=== PATIENT | female | born 1950 | race Two or more races ===

== ENCOUNTER 2025-03-01 19:07 | Emergency (ER) | payer MEDICAID ==
[~2025-03-01] VITALS: Ht 160 cm; Wt 70.3 kg
[2025-03-01] MEDS ORDERED: DICYCLOMINE HCL (10MG/ML) 2 ML AMPULE IM ONE (19:45)
--- NOTE | 2025-03-01 20:22 | ED.PDOC ---
History of Present Illness HPI Comments 74 y/o Wallisian speaking F presents with c/c of nonradiating, diffused abdominal pain, with associated diarrhea, intermittent fever, and generalized bodyaches, for over the past 3x days. Patient states the symptoms came on and have been intermittent. Patient denies any recent travel or new food sources. Vital signs were stable on arrival. Chief Complaint: Diarrhea Time Seen by MD: 19:30 Reviewed Notes: Nurses Notes, Medications, Allergies Allergies: Coded Allergies: NO KNOWN ALLERGIES (Unverified , 03/01/25) Information Source: Patient Mode of Arrival: Ambulatory Severity: Moderate Timing: Days Duration: Since onset Prehospital treatment: None Past Medical History PAST MEDICAL HISTORY: Denies Surgical History: Denies all surgeries PRODUCT SAFETY HEAD History: No Pertinent PRODUCT SAFETY HEAD History Social History Smoker: Non-Smoker Alcohol: Denies ETOH Use Drugs: Denies Drug Use Lives In: Home Constitutional: reports: fever; denies: chills, diaphoresis, fatigue, malaise, sweats, weakness, others EENTM: denies: blurred vision, double vision, ear bleeding, ear discharge, ear drainage, ear pain, ear ringing, eye pain, eye redness, hearing loss, mouth pain, mouth swelling, nasal discharge, nose bleeding, nose congestion, nose pain, photophobia, tearing, throat pain, throat swelling, voice changes, others Respiratory: denies: cough, hemoptysis, orthopnea, SOB at rest, shortness of breath, SOB with excertion, stridor, wheezing, others Cardiovascular: denies: chest pain, dizzy spells, diaphoresis, Dyspnea on exertion, edema, irregular heart beat, left arm pain, lightheadedness, palpitations, PND, syncope, others Gastrointestinal: reports: abdominal pain, nausea, vomiting; denies: abdomen distended, blood streaked bowels, constipated, diarrhea, dysphagia, difficulty swallowing, hematemesis, melena, poor appetite, poor fluid intake, rectal bleeding, rectal pain, others Genitourinary: denies: abnormal vagina bleeding, burning, dyspareunia, dysuria, flank pain, frequency, hematuria, incontinence, pain, , vagina discharge, urgency, others Neurological: denies: dizziness, fainting, headache, left sided numbness, left sided weakness, numbness, paresthesia, pre-existing deficit, right sided numbness, right sided weakness, seizure, speech problems, tingling, tremors, weakness, others Musculoskeletal: denies: back pain, gout, joint pain, joint swelling, muscle pain, muscle stiffness, neck pain, others Integumetry: denies: bruises, change in color, change in hair/nails, dryness, laceration, lesions, lumps, rash, wounds, others Allergic/Immunocompromised: denies: Difficulty Healing, Frequent Infections, Hives, Itching, others Hematologic/Lymphatic: denies: anemia, blood clots, easy bleeding, easy bruising, swollen glands, others Endocrine: denies: excessive hunger, excessive sweating, excessive thirst, excessive urination, flushing, intolerance to cold, intolerance to heat, unexplained weight gain, unexplained weight loss, others Psychiatric: denies: anxiety, bipolar disorder, depression, hopeless, panic disorder, schizophrenia, sleepless, suicidal, others All Other Systems: Reviewed and Negative (Comprehensive review of systems are negative unless stated in HPI) Physical Exam General Appearance: No Apparent Distress, Normal HEENT: Normal ENT Inspection, Pharynx Normal, TMs Normal Neck: Full Range of Motion, Non-Tender, Normal, Normal Inspection Respiratory: Chest Non-Tender, Lungs Clear, No Accessory Muscle Use, No Respiratory Distress, Normal Breath Sounds Cardiovascular: No Edema, No JVD, No Murmur, No Gallop, Normal Peripheral Pulses, Regular Rate/Rhythm Breast Exam: Deferred Gastrointestinal: Other (Diffuse nonspecific abdominal pain throughout all quadrants. Abdomen was reasonably soft. No pulsatile masses.) Genitalia: Deferred Pelvic: Deferred Rectal: Deferred Extremities: No calf tenderness, Normal capillary refill, No pedal edema Neurologic: Alert Cerebellar Function: NOT DONE Reflexes: NOT DONE Skin: Dry, Normal Color, Warm Lymphatic: No Adenopathy Was a procedure done? Was a procedure done?: No Differential Dx Considerations may include: Urinary tract infection, viral gastroenteritis, food poisoning X-Ray, Labs, Meds, VS Vital Signs Date Time Temp Pulse Resp B/P (MAP) Pulse Ox O2 Delivery O2 Flow Rate FiO2 03/01/25 19:12 98.3 96 16 130/86 95 98.3 Lab Test 03/01/25 19:30 Range/Units Urine Color Light-yellow Yellow Urine Clarity Clear Clear Urine pH 5.5 5.0-9.0 Urine Specific [place] 1.011 1.001-1.035 Urine Protein Negative Negative Urine Ketones Negative Negative Urine Blood Negative Negative /uL Urine Nitrite Negative Negative Urine Bilirubin Negative Negative Urine Urobilinogen Normal Negative mg/dL Urine Leukocyte Esterase Negative Negative /uL Urine RBC <1 0 - 4 /hpf Urine Microscopic WBC < 1 0-5 /HPF Urine Squamous Epithelial Cells Few <5 /hpf Urine Bacteria None seen None Seen /hpf Urine Glucose Normal Normal mg/dL X-Ray, Labs, Meds, VS Comment All studies performed the ED were evaluated by me personally. Urinalysis was unremarkable for any urinary tract infection. Patient appears to be suffering from a viral gastroenteritis. Advised patient utilize medication as needed for symptomatic relief. Advised good hydration and healthy nutrition throughout. Time of 1ST Reevaluation: 22:53 Reevaluation 1ST: Improved Consultation: PCP Patient Education/Counseling: Diagnosis, Treatment, Need For Follow Up Family Education/Counseling: Diagnosis, Treatment, No Family Present SEPSIS Sepsis Screen Date sepsis recognized/suspect: Mar 01, 2025 Time Sepsis recognized/suspect: 1911 Recent Procedure: No On Antibiotic Therapy: No Respiratory Rate >20: No Heart Rate >90: No Temp<36 C (96.8 F) or >38.3 C: No SBP <90 or MAP <65 mmHG: No New Acute Mental Status Change: No Is the patient on CPAP, BIPAP,: No Vital Signs Date Time Temp Pulse Resp B/P (MAP) Pulse Ox O2 Delivery O2 Flow Rate FiO2 03/01/25 19:12 98.3 96 16 130/86 95 98.3 Departure 1 Departure Time of Disposition: 22:54 Impression: Primary Impression: Viral gastroenteritis Disposition: HOME / SELF CARE / HOMELESS Condition: Stable Additional Instructions: Advised patient to utilize medication as needed for symptomatic relief as well as good hydration and healthy nutrition throughout illness event. e-Prescriptions Acetaminophen (Acetaminophen) 500 Mg Tab 500 MG PO Q4HP PRN, #30 TAB Prov: JYOTI SHABAZZ PAC 03/01/25 Ondansetron Odt 4MG Tab (ZOFRAN PO) 4 Mg Tb 4 MG PO Q6HP PRN, #15 TAB ODT TAB-DISSOLVE IN MOUTH, THEN SWALLOW Prov: JYOTI SHABAZZ PAC 03/01/25 Dicyclomine Hcl (BENTYL CAPSULE) 10 Mg Cp 1 CAP PO Q6HPRN, #20 CAP 0 Refills Prov: JYOTI SHABAZZ PAC 03/01/25 Discharged With: Self, Friend Critical Care Note Critical Care Time?: No Stability Stability form required: No Heart Score Heart Score: Heart Score Response (Comments) Value History N/A 0 EKG N/A 0 Age N/A 0 Risk Factors N/A 0 Troponin N/A 0 Total 0 I personally scribed for JYOTI SHABAZZ PAC ([email or web address]) on 03/01/25 at 20:22. Electronically submitted by Clarence Augustin ([email or web address]). JYOTI SHABAZZ PAC Mar 01, 2025 20:22
[2025-03-01 20:58] LABS: Urine Protein, UAD Negative (Negative)
[2025-03-01] MEDS ORDERED: ZOFR4T PO (22:55)
[2025-03-01] MEDS ORDERED: ACET500T58 PO (22:55)
[2025-03-01] MEDS ORDERED: DICY10CA PO (22:55)
[2025-03-01 23:12] VITALS: BP 133/66; TEMP 98.1
[2025-03-01 23:13] VITALS: PULSE 78; RESP 18; O2SAT 96
== END 2025-03-01 23:15 | disposition home or self-care (01) ==
LOC: ER 19:07
DX: A08.4 Viral intestinal infection, unspecified (principal); Z79.899 Other long term (current) drug therapy
CPT/HCPCS: 81001

== ENCOUNTER 2025-03-13 11:33 | Inpatient (IN) | payer MEDICAID ==
[~2025-03-13] VITALS: Ht 149.9 cm; Wt 55.8 kg
[~2025-03-13 11:33] MED LIST: ACET500T58 PO; DICY10CA PO; ZOFR4T PO
--- NOTE | 2025-03-13 13:28 | ED.PDOC ---
GI ASSESSMENT HPI Comments 74-year-old female presents here with abdominal pain x1 week. She states she was here 2 weeks ago with similar chief complaint. At that time she was diagnosed with viral gastroenteritis discharged home with Bentyl. She states she is doing okay for 1 week and then for last 1 week she has had significant lower abdominal pain. She states it can be anytime whether she is eating sleeping any particular time. She states her diarrhea has mostly resolved but she continues to have significant discomfort. Denies any fever chills nausea vomiting.. Chief Complaint: Abdominal Pain Time Seen by MD: 13:25 Reviewed Notes: Nurses Notes, Medications, Allergies Allergies: Coded Allergies: NO KNOWN ALLERGIES (Unverified , 03/01/25) Home Meds Active Scripts Acetaminophen (Acetaminophen) 500 Mg Tab, 500 MG PO Q4HP PRN, #30 TAB Prov:JYOTI SHABAZZ PAC 03/01/25 Ondansetron Odt 4MG Tab (ZOFRAN PO) 4 Mg Tb, 4 MG PO Q6HP PRN, #15 TAB ODT TAB-DISSOLVE IN MOUTH, THEN SWALLOW Prov:JYOTI SHABAZZ PAC 03/01/25 Dicyclomine Hcl (BENTYL CAPSULE) 10 Mg Cp, 1 CAP PO Q6HPRN, #20 CAP 0 Refills Prov:JYOTI SHABAZZ PAC 03/01/25 Information Source: Patient Mode of Arrival: Ambulatory Timing: Days Duration: Since onset, Days Prehospital treatment: None Quality: Aching Vomitus: None Stool: Loose Severity: Moderate Recent: None Recent Hx of: None Pain Location: Suprapubic Associated sign and symptoms: Diarrhea, Abdominal Pain Past Medical History PAST MEDICAL HISTORY: Denies Surgical History: Denies all surgeries PRINTER MACHINE History: No Pertinent PRINTER MACHINE History Family History Family History: Reviewed,noncontributory to illness, Unknown Social History Smoker: Non-Smoker Alcohol: Denies ETOH Use Drugs: Denies Drug Use Lives In: Home Constitutional: denies: chills, diaphoresis, fatigue, fever, malaise, sweats, weakness, others EENTM: denies: blurred vision, double vision, ear bleeding, ear discharge, ear drainage, ear pain, ear ringing, eye pain, eye redness, hearing loss, mouth pain, mouth swelling, nasal discharge, nose bleeding, nose congestion, nose pain , photophobia, tearing, throat pain, throat swelling, voice changes, others Respiratory: denies: cough, hemoptysis, orthopnea, SOB at rest, shortness of breath, SOB with excertion, stridor, wheezing, others Cardiovascular: denies: chest pain, dizzy spells, diaphoresis, Dyspnea on exertion, edema, irregular heart beat, left arm pain, lightheadedness, palpitations, PND, syncope, others Gastrointestinal: reports: abdominal pain, diarrhea; denies: abdomen distended, blood streaked bowels, constipated, dysphagia, difficulty swallowing, hematemesis, melena, nausea, poor appetite, poor fluid intake, rectal bleeding, rectal pain, vomiting, others Genitourinary: denies: abnormal vagina bleeding, burning, dyspareunia, dysuria, flank pain, frequency, hematuria, incontinence, pain, , vagina discharge, urgency, others Neurological: denies: dizziness, fainting, headache, left sided numbness, left sided weakness, numbness, paresthesia, pre-existing deficit, right sided numbness, right sided weakness, seizure, speech problems, tingling, tremors, weakness, others Musculoskeletal: denies: back pain, gout, joint pain, joint swelling, muscle pain, muscle stiffness, neck pain, others Integumetry: denies: bruises, change in color, change in hair/nails, dryness, laceration, lesions, lumps, rash, wounds, others Allergic/Immunocompromised: denies: Difficulty Healing, Frequent Infections, Hives, Itching, others Hematologic/Lymphatic: denies: anemia, blood clots, easy bleeding, easy bruising, swollen glands, others Endocrine: denies: excessive hunger, excessive sweating, excessive thirst, excessive urination, flushing, intolerance to cold, intolerance to heat, unexplained weight gain, unexplained weight loss, others Psychiatric: denies: anxiety, bipolar disorder, depression, hopeless, panic disorder, schizophrenia, sleepless, suicidal, others All Other Systems: Reviewed and Negative Physical Exam General Appearance: No Apparent Distress, Normal HEENT: Normal ENT Inspection, Pharynx Normal, TMs Normal Neck: Full Range of Motion, Non-Tender, Normal, Normal Inspection Respiratory: Chest Non-Tender, Lungs Clear, No Accessory Muscle Use, No Respiratory Distress, Normal Breath Sounds Cardiovascular: No Edema, No JVD, No Murmur, No Gallop, Normal Peripheral Pulses, Regular Rate/Rhythm Breast Exam: Deferred Gastrointestinal: No Organomegaly, Non Tender, No Pulsatile Mass, Normal Bowel Sounds, Soft, Tenderness (Diffuse lower abdominal tenderness to palpation worse in the left lower quadrant) Genitalia: Deferred Pelvic: Deferred Rectal: Deferred Extremities: No calf tenderness, Normal capillary refill, Normal inspection, Normal range of motion, Non-tender, No pedal edema Musculoskeletal : Apperance: Normal Neurologic: Alert, filenet developer II-XII nml as Tested, No Motor Deficits, Normal Affect, Normal Mood, No Sensory Deficits Cerebellar Function: Normal Reflexes: Normal Skin: Dry, Normal Color, Warm Lymphatic: No Adenopathy Was a procedure done? Was a procedure done?: No GI differential Dx Differential Diagnosis: Gastritis/PUD, Ischemic Bowel, Mass Other Differential Diagnosis Diverticulitis, small-bowel obstruction, C diff X-Ray, Labs, Meds, VS Vital Signs Date Time Temp Pulse Resp B/P (MAP) Pulse Ox O2 Delivery O2 Flow Rate FiO2 03/13/25 11:44 98.8 104 16 146/87 96 98.8 Lab Test 03/13/25 13:52 Range/Units White Blood Count 7.0 4.4-10.8 10^3/uL Red Blood Count 4.13 4.0-5.20 10^6/uL Hemoglobin 13.1 12.2-16.2 g/dL Hematocrit 36.9 36.0-46.0 % Mean Corpuscular Volume 89.4 80.0-100.0 fL Mean Corpuscular Hemoglobin 31.6 28.0-32.0 pg Mean Corpuscular Hemoglobin Concent 35.4 32.0-36.0 g/dL Red Cell Distribution Width 12.8 11.8-14.3 % Platelet Count 293 140-450 10^3/uL Mean Platelet Volume 7.0 6.9-10.8 fL Neutrophils (%) (Auto) 61.3 37.0-80.0 % Lymphocytes (%) (Auto) 27.3 10.0-50.0 % Monocytes (%) (Auto) 7.9 0.0-12.0 % Eosinophils (%) (Auto) 2.9 0.0-7.0 % Basophils (%) (Auto) 0.6 0.0-2.0 % Neutrophils # (Auto) 4.3 1.6-8.6 10 ^3/uL Lymphocytes # (Auto) 1.9 0.4-5.4 10 ^3/uL Monocytes # (Auto) 0.6 0-1.3 10 ^3/uL Eosinophils # (Auto) 0.2 0-0.8 10 ^3/uL Basophils # (Auto) 0 0-0.2 10 ^3/uL Nucleated Red Blood Cells 0.1 % Sodium Level 139 136-145 mmol/L Potassium Level 3.7 3.5-5.1 mmol/L Chloride Level 103 98-107 mmol/L Carbon Dioxide Level 27 20-31 mmol/L Anion Gap 9 5-15 Blood Urea Nitrogen 7 L 9-23 mg/dL Creatinine 0.70 0.550-1.02 mg/dL Glomerular Filtration Rate Calc 91 >90 mL/min BUN/Creatinine Ratio 10.0 10.0-20.0 Serum Glucose 138 H 74-106 mg/dL Calcium Level 9.4 8.7-10.4 mg/dL Total Bilirubin 0.4 0.2-1.0 mg/dL Aspartate Amino Transferase (AST) 17 13-40 U/L Alanine Aminotransferase (ALT) 15 7-40 U/L Alkaline Phosphatase 63 46-116 U/L Total Protein 7.3 5.7-8.2 g/dL Albumin 4.4 3.2-4.8 g/dL Lipase 48 12-53 U/L [place] [id number] Ph: [phone] DIAGNOSTIC IMAGING Diagnostic Imaging Report : [id number] Signed PATIENT: CASPER GARCIA ACCT: [id number] UNIT: [id number] : 1950 LOC: ER ROOM / BED: / AGE / SEX: 74 / F ADM STATUS: REG ER SERVICE 1303 ORDERING PHYSICIAN: GM BARAKAT MD PROCEDURE(s): ABPL - CT AB PEL WO CON-NO ORAL OR IV REASON: Abdominal pain ORDER NUMBER(s): [id number], ACCESSION NUMBER(s): [id number] CLINICAL HISTORY: Abdominal pain TECHNIQUE: CT of the abdomen and pelvis was performed without IV contrast. This exam was performed according to our departmental dose optimization program. Up-to-date CT equipment and radiation dose reduction techniques are utilized as appropriate. CTDI 7.2 DLP 321 COMPARISON: None FINDINGS: Abdomen/Pelvis: The spleen, pancreas, adrenal glands, liver, kidneys, and bladder are grossly u nremarkable. The gallbladder and uterus are absent. The abdominal aorta is normal in course and caliber. There are minimal aortic atherosclerotic calcifications. There is no free intraperitoneal air or fluid. There is no enlarged abdominal pelvic lymph node. There is no bowel wall thickening or dilatation. The appendix is normal. There are small fat containing ventral hernias. There is mild left colon diverticulosis. Other: The imaged lower thorax demonstrates mild atelectatic changes at both lung bases. No acute osseous abnormality is evident. Impression: No acute abnormality. Hysterectomy. Cholecystectomy. Mild left colon diverticulosis. ATED BY: VANESA TRAVIS MD DICTATED DATE/TIME: 03/13/257 SIGNED BY: VANESA TRAVIS MD SIGNED DATE/TIME: 03/13/257 CC: 74-year-old female presents here with lower abdominal pain. She was here 2 weeks ago with similar complaint diagnosed with viral enteritis. She states she was doing okay for 1 week and for last 1 week she has had significant lower abdominal pain. Diarrhea has mostly improved but continues to have some. On my examination she is exquisitely tender to the lower abdomen mostly to the left. CT abdomen pelvis with noncontrast is unremarkable. However at this time given she is so tender considered possible C diff also. However patient unable to give a stool sample. She states she is unable to be seen by her PCP until April. At this time blood work is unremarkable with a normal CBC BMP. I did offer admission which she has agreed to. I also have ordered a CT abdomen pelvis with oral and IV contrast. Hospitalist team has been contacted for admission. Time of 1ST Reevaluation: 13:55 Reevaluation 1ST: Unchanged Patient Education/Counseling: Diagnosis, Treatment, Prognosis Family Education/Counseling: No Family Present SEPSIS Sepsis Screen Date sepsis recognized/suspect: Mar 13, 2025 Time Sepsis recognized/suspect: 1147 Recent Procedure: No On Antibiotic Therapy: No Respiratory Rate >20: No Heart Rate >90: Yes Temp<36 C (96.8 F) or >38.3 C: No SBP <90 or MAP <65 mmHG: No New Acute Mental Status Change: No Is the patient on CPAP, BIPAP,: No Physician Orders Urinalysis (03/13/25 13:03) Ct Ab Pel Wo Con-No Oral Or Iv (03/13/25 13:03) Clostridium Difficile Toxin (03/13/25 15:22) Stool Bacterial Culture (03/13/25 15:22) Ct Abd Pelvis W Con-Oral & Iv (03/13/25 15:22) Vital Signs Date Time Temp Pulse Resp B/P (MAP) Pulse Ox O2 Delivery O2 Flow Rate FiO2 03/13/25 11:44 98.8 104 16 146/87 96 98.8 Laboratory Tests Test 03/13/25 13:52 White Blood Count 7.0 10^3/uL (4.4-10.8) Departure 1 Departure Time of Disposition: 15:28 Impression: Primary Impression: Abdominal pain Qualified Codes: R10.32 - Left lower quadrant pain Disposition: 09 ADMITTED INPATIENT Condition: Fair Critical Care Note Critical Care Time?: No Stability Stability form required: No Heart Score Heart Score: Heart Score Response (Comments) Value History N/A 0 EKG N/A 0 Age N/A 0 Risk Factors N/A 0 Troponin N/A 0 Total 0 I personally scribed for GM BARAKAT MD ([email or web address]) on 03/13/25 at 13:28. Electronically submitted by Guzman Shane ([email or web address]). GM BARAKAT MD Mar 13, 2025 13:28
--- NOTE | 2025-03-13 13:50 | DVH ---
CLINICAL HISTORY: Abdominal pain TECHNIQUE: CT of the abdomen and pelvis was performed without IV contrast. This exam was performed ac cording to our departmental dose optimization program. Up-to-date CT equipment and radiation dose red uction techniques are utilized as appropriate. CTDI 7.2 DLP 321 COMPARISON: None FINDINGS: Abdomen/Pelvis: The spleen, pancreas, adrenal glands, liver, kidneys, and bladder are grossly unremarkable. The gallbladder and uterus are absent. The abdominal aorta is normal in course and caliber. There are minimal aortic atherosclerotic calcifi cations. There is no free intraperitoneal air or fluid. There is no enlarged abdominal pelvic lymph node. There is no bowel wall thickening or dilatation. The appendix is normal. There are small fat containi ng ventral hernias. There is mild left colon diverticulosis. Other: The imaged lower thorax demonstrates mild atelectatic changes at both lung bases. No acute osseous abnormality is evident. Impression: No acute abnormality. Hysterectomy. Cholecystectomy. Mild left colon diverticulosis.
[2025-03-13 14:39] LABS: Hematocrit 36.9 % (36.0-46.0); Hemoglobin 13.1 g/dL (12.2-16.2); Mean Corpuscular Hemoglobin 31.6 pg (28.0-32.0); Mean Corpuscular Volume 89.4 fL (80.0-100.0); Nucleated Red Blood Cells % 0.1 %
[2025-03-13 14:53] LABS: Alanine Aminotransferase 15 U/L (7-40); Albumin 4.4 g/dL (3.2-4.8); Alkaline Phosphatase 63 U/L (46-116); Anion Gap 9 (5-15); BUN/Creatinine Ratio 10.0 (10.0-20.0); Bilirubin, Total 0.4 mg/dL (0.2-1.0); Calcium 9.4 mg/dL (8.7-10.4); Carbon Dioxide 27 mmol/L (20-31); Chloride 103 mmol/L (98-107); Lipase 48 U/L (12-53); Potassium 3.7 mmol/L (3.5-5.1); Sodium 139 mmol/L (136-145); Total Protein 7.3 g/dL (5.7-8.2)
[2025-03-13 14:57] LABS: Blood Urea Nitrogen 7 mg/dL (9-23); Glucose 138 mg/dL (74-106)
[2025-03-13] MEDS: OMNIPAQUE 12mg/ml 500ml ORAL SOLUTION PO ONE (16:14)
[2025-03-13] MEDS: IOHEXOL 300 MG/ML 100ML BOTTLE IJ ONE (18:02)
--- NOTE | 2025-03-13 18:19 | DVH ---
EXAM: CT CT ABD PELVIS W CON-ORAL IV HISTORY: abd pain TECHNIQUE: Volumetric multidetector CT images of the abdomen and pelvis were obtained after the admin istration of intravenous contrast. All CT scans at this facility use dose modulation, iterative recon struction, and/or weight based dosing when appropriate to reduce radiation dose to as low as reasonab ly achievable. COMPARISON: CT CT AB PEL WO CON-NO ORAL OR IV on DOS: 03/13/25 FINDINGS: [LOWER CHEST]: The partially visualized lung bases are clear without a pleural effusion. [LIVER]: Normal hepatic size without suspicious focal lesion. [GALLBLADDER AND BILIARY TREE]: Surgically absent. [SPLEEN]: Unremarkable. [PANCREAS]: Unremarkable. [ADRENAL GLANDS]: Unremarkable [KIDNEYS]: No hydronephrosis. No nephroureterolithiasis. No suspicious focal lesion. [BLADDER]: Unremarkable for the degree distention. [REPRODUCTIVE ORGANS]: Hysterectomy. [BOWEL/MESENTERY]: Stomach is normal. No CT evidence of bowel obstruction. minimal sigmoid diverticul osis. No significant stool burden. Trace possible sliding hiatal hernia [ASCITES]: Absent [LYMPHADENOPATHY]: No pathologically enlarged lymph nodes by CT size criteria [VASCULATURE]: No aneurysmal dilatation. [ABDOMINAL WALL]: Unremarkable. [MUSCULOSKELETAL]: No acute fracture or aggressive focal osseous lesion. Multifocal degenerative garza ge of the visualized spine. IMPRESSION: 1. No CT evidence of an acute abdominal/pelvic process. 2. Trace possible sliding hiatal hernia.
[2025-03-13 18:47] VITALS: PULSE 79; RESP 12; O2SAT 98
[2025-03-13 19:48] VITALS: PULSE 74; RESP 18; O2SAT 97
[2025-03-13] MEDS ORDERED: HYDROcodone-ACET 5/325MG TAB PO PRN (20:45)
[2025-03-13] MEDS ORDERED: ONDANSETRON HCL 4 MG/2 ML VIAL IV PRN (20:45)
[2025-03-13] MEDS: SODIUM CHLORIDE 0.9% 1,000 ML IV SCH (21:03)
--- NOTE | 2025-03-13 21:41 | DVHHP2 ---
History of Present Illness Reason for Visit: Abdominal pain History of Present Illness The patient is a 74-year-old female who denies past medical history presented to [facility] ED with complaint of abdominal pain for the past 1 week. Patient reports she has been experiencing acute abdominal pain associated with diarrhea. Patient states she was seen here 2 weeks ago with similar symptoms and was diagnosed with viral gastroenteritis discharged home with Jennyyl. Patient was seen and evaluated in the ED, laboratory data shows WBC 7.0, platelets 293, sodium 139, potassium 3.7, BUN 7, creatinine 0.70, glucose 138, calcium 9.4, lipase 48, blood pressure 120/63, heart rate 74, temperature 98.1 F, O2 saturation 96% on room air. Abdomen/pelvis CT shows no evidence of acute abdominal/pelvic process. Please see medication orders section in the computer. On my assessment, patient denied chest pain, no headache, dizziness, diaphoresis, shortness of breaths, no abdominal pain at this moment, diarrhea, nausea, vomiting, no fever, no chills. Patient was admitted for further evaluation and medical management. Past Medical History Denies past medical history Past Surgical History Denies all surgeries Family History Reviewed, noncontributory to the management of this case. Past Social History The patient lives at home, denies smoking, alcohol or illicit drugs abuse. Review of Systems Constitutional: No: Fever, Chills, Sweats, Weakness, Malaise, Other Eyes: No: Pain, Vision change, Conjunctivae inflammation, Eyelid inflammation, Other, Redness ENT: No: Ear pain, Ear discharge, Nose pain, Nose discharge, Nose congestion, Mouth pain, Mouth swelling, Throat pain, Throat swelling, Other Respiratory: No: Cough, Dry, Shortness of breath, SOB with excertion, Wheezing, Hemoptysis, Pleuritic Pain, Sputum, Wheezing, Other Cardiovascular: No: Chest Pain, Palpitations, Orthopnea, Paroxysmal Noc. Dyspnea, Edema, Lt Headedness, Other Gastrointestinal: Abdominal Pain, Diarrhea; No: Nausea, Vomiting, Constipation, Melena, Hematochezia, Other Genitourinary: No Dysuria, No Frequency, No Incontinence, No Hematuria, No Retention, No Other Musculoskeletal: No: other, neck pain, shoulder pain, arm pain, back pain, hand pain, leg pain, foot pain Skin: No: Rash, Lesions, Jaundice, Bruising, Other Neurological: No: Weakness, Numbness, Incoordination, Change in speech, Confusion, Seizures, Other Allergies: Coded Allergies: NO KNOWN ALLERGIES (Unverified , 03/01/25) Medications Current Medications Medications Dose Ordered Sig/Lina Route Start Time Stop Time Status Last Admin Dose Admin Sodium Chloride 1,000 ml @ 60 mls/hr [id number] IV 03/13/25 20:45 03/13/25 21:03 60 MLS/HR Acetaminophen/ Hydrocodone Bitart 1 tab Q4HP PRN PO 03/13/25 20:45 Ondansetron HCl 4 mg Q4HP PRN IV 03/13/25 20:45 Acetaminophen 650 mg Q6HP PRN PO 03/13/25 20:45 Exam Vital Signs Vital Signs Date Time Temp Pulse Resp B/P (MAP) Pulse Ox O2 Delivery O2 Flow Rate FiO2 03/13/25 19:48 74 18 97 Room Air* 0 21 03/13/25 19:48 98.1 120/63 (82) 98.1 General Appearance: Alert, Oriented X3, Cooperative, No acute distress HEENT: Atraumatic, PERRLA, EOMI, Mucous membr. moist/pink Respiratory: Clear to auscultation, Normal air movement Cardiovascular: Regular rate, Normal S1, Normal S2, No murmurs Abdominal: Normal bowel sounds, Soft, No hepatospenomegaly, No masses, Other (Reports tenderness) Extremities: No clubbing, No cyanosis, No edema, Normal pulses Skin: No rashes, No breakdown, No significant lesion Neuro: Normal gait, Normal speech, Strength at 5/5 X4 ext, Normal tone, Sensation intact, Cranial nerves 3-12 NL, Reflexes 2+ Psych/Mental Status: Mental status NL, Mood NL Labs/Xrays Labs Test 03/13/25 13:52 Range/Units White Blood Count 7.0 4.4-10.8 10^3/uL Red Blood Count 4.13 4.0-5.20 10^6/uL Hemoglobin 13.1 12.2-16.2 g/dL Hematocrit 36.9 36.0-46.0 % Mean Corpuscular Volume 89.4 80.0-100.0 fL Mean Corpuscular Hemoglobin 31.6 28.0-32.0 pg Mean Corpuscular Hemoglobin Concent 35.4 32.0-36.0 g/dL Red Cell Distribution Width 12.8 11.8-14.3 % Platelet Count 293 140-450 10^3/uL Mean Platelet Volume 7.0 6.9-10.8 fL Neutrophils (%) (Auto) 61.3 37.0-80.0 % Lymphocytes (%) (Auto) 27.3 10.0-50.0 % Monocytes (%) (Auto) 7.9 0.0-12.0 % Eosinophils (%) (Auto) 2.9 0.0-7.0 % Basophils (%) (Auto) 0.6 0.0-2.0 % Neutrophils # (Auto) 4.3 1.6-8.6 10 ^3/uL Lymphocytes # (Auto) 1.9 0.4-5.4 10 ^3/uL Monocytes # (Auto) 0.6 0-1.3 10 ^3/uL Eosinophils # (Auto) 0.2 0-0.8 10 ^3/uL Basophils # (Auto) 0 0-0.2 10 ^3/uL Nucleated Red Blood Cells 0.1 % Sodium Level 139 136-145 mmol/L Potassium Level 3.7 3.5-5.1 mmol/L Chloride Level 103 98-107 mmol/L Carbon Dioxide Level 27 20-31 mmol/L Anion Gap 9 5-15 Blood Urea Nitrogen 7 L 9-23 mg/dL Creatinine 0.70 0.550-1.02 mg/dL Glomerular Filtration Rate Calc 91 >90 mL/min BUN/Creatinine Ratio 10.0 10.0-20.0 Serum Glucose 138 H 74-106 mg/dL Calcium Level 9.4 8.7-10.4 mg/dL Total Bilirubin 0.4 0.2-1.0 mg/dL Aspartate Amino Transferase (AST) 17 13-40 U/L Alanine Aminotransferase (ALT) 15 7-40 U/L Alkaline Phosphatase 63 46-116 U/L Total Protein 7.3 5.7-8.2 g/dL Albumin 4.4 3.2-4.8 g/dL Lipase 48 12-53 U/L PATIENT: CASPER GARCIA ACCT: [id number] UNIT: [id number] : 1950 LOC: ER ROOM / BED: / AGE / SEX: 74 / F ADM STATUS: REG ER SERVICE 1522 ORDERING PHYSICIAN: GM BARAKAT MD PROCEDURE(s): ABPLC - CT ABD PELVIS W CON-ORAL & IV REASON: abd pain ORDER NUMBER(s): [id number], ACCESSION NUMBER(s): [id number] EXAM: CT CT ABD PELVIS W CON-ORAL IV HISTORY: abd pain TECHNIQUE: Volumetric multidetector CT images of the abdomen and pelvis were obtained after the administration of intravenous contrast. All CT scans at this facility use dose modulation, iterative reconstruction, and/or weight based dosing when appropriate to reduce radiation dose to as low as reasonably achievable. COMPARISON: CT CT AB PEL WO CON-NO ORAL OR IV on DOS: 03/13/25 FINDINGS: [LOWER CHEST]: The partially visualized lung bases are clear without a pleural effusion. [LIVER]: Normal hepatic size without suspicious focal lesion. [GALLBLADDER AND BILIARY TREE]: Surgically absent. [SPLEEN]: Unremarkable. [PANCREAS]: Unremarkable. [ADRENAL GLANDS]: Unremarkable [KIDNEYS]: No hydronephrosis. No nephroureterolithiasis. No suspicious focal lesion. [BLADDER]: Unremarkable for the degree distention. [REPRODUCTIVE ORGANS]: Hysterectomy. [BOWEL/MESENTERY]: Stomach is normal. No CT evidence of bowel obstruction. minimal sigmoid diverticulosis. No significant stool burden. Trace possible sliding hiatal hernia [ASCITES]: Absent [LYMPHADENOPATHY]: No pathologically enlarged lymph nodes by CT size criteria [VASCULATURE]: No aneurysmal dilatation. [ABDOMINAL WALL]: Unremarkable. [MUSCULOSKELETAL]: No acute fracture or aggressive focal osseous lesion. Multifocal degenerative change of the visualized spine. IMPRESSION: 1. No CT evidence of an acute abdominal/pelvic process. 2. Trace possible sliding hiatal hernia. SEPSIS Sepsis Screen Date sepsis recognized/suspect: Mar 13, 2025 Time Sepsis recognized/suspect: 1949 Recent Procedure: No On Antibiotic Therapy: No Respiratory Rate >20: No Heart Rate >90: No Temp<36 C (96.8 F) or >38.3 C: No SBP <90 or MAP <65 mmHG: No New Acute Mental Status Change: No Is the patient on CPAP, BIPAP,: No Physician Orders Clostridium Difficile Toxin (03/13/25 15:22) Stool Bacterial Culture (03/13/25 15:22) Ct Abd Pelvis W Con-Oral & Iv (03/13/25 15:22) Allergies (03/13/25 20:31) Code Status (03/13/25 20:31) Sodium Chloride 0.9% (03/13/25 20:45) Oxygen Per Hour (03/13/25 20:31) Hydrocodone-Acet 5/325mg Tab ([place] 5/32 (03/13/25 20:45) Ondansetron Hcl (Zofran) (03/13/25 20:45) Complete Blood Count (03/14/25 04:00) Comprehensive Metabolic Panel (03/14/25 04:00) Condition: Serious (03/13/25 20:31) Acetaminophen Tablet (Tylenol Tablet) (03/13/25 20:45) Clear Liq Diet (03/14/25 Breakfast) Bedrest With Bathroom Privileg (03/13/25 20:31) Sequential Compression Device (03/13/25 ) Vital Signs Date Time Temp Pulse Resp B/P (MAP) Pulse Ox O2 Delivery O2 Flow Rate FiO2 03/13/25 19:48 74 18 97 Room Air* 0 21 03/13/25 19:48 98.1 74 18 120/63 (82) 94 98.1 03/13/25 18:47 75 10 123/63 (83) 96 03/13/25 18:47 79 12 98 Room Air* 0 21 Laboratory Tests Test 03/13/25 13:52 White Blood Count 7.0 10^3/uL (4.4-10.8) Medications Medications Dose Ordered Sig/Lina Route Start Time Stop Time Status Last Admin Dose Admin Sodium Chloride 1,000 ml @ 60 mls/hr [id number] IV 03/13/25 20:45 03/13/25 21:03 60 MLS/HR Assessment/Plan Assessment/Plan Abdominal pain Hyperglycemia Left lower quadrant pain Plan 1. Admit to med surge unit 2. Breathing treatment 3. Pain control management 4. Management of fluids and electrolytes 5. Consultation for hospitalist 6. Diagnostic tests abdomen/pelvis CT 7. DVT prophylaxis-on SCDs 8. Repeat labs CBC, CMP in a.m. 9. Continue with current medical management 10. Treatment plan discussed with patient and RN. Patient verbalized understanding. Plan discussed with: Patient, Other (RN) My Orders Orders - BRITTNEY VERA DNP Procedure Category Date Status Time Allergies KAMLESH 03/13/25 In Process 20:31 Code Status CODE 03/13/25 Transmitted 20:31 Sodium Chloride 0.9% PHA 03/13/25 In Process 20:45 Oxygen Per Hour RT 03/13/25 Transmitted 20:31 Hydrocodone-Acet PHA 03/13/25 In Process 5/325mg Tab ([place] 20:45 Ondansetron Hcl PHA 03/13/25 In Process (Zofran) 20:45 Complete Blood Count LAB 03/14/25 Verified 04:00 Comprehensive LAB 03/14/25 Verified Metabolic Panel 04:00 Condition: Serious KAMLESH 03/13/25 In Process 20:31 Acetaminophen Tablet PHA 03/13/25 In Process (Tylenol Tablet) 20:45 Clear Liq Diet DIET 03/14/25 Transmitted Breakfast Bedrest With Bathroom KAMLESH 03/13/25 In Process Privileg 20:31 Sequential KAMLESH 03/13/25 In Process Compression Device Problem List: (1) Abdominal pain (2) Hyperglycemia (3) Left lower quadrant pain Date of Service: Mar 13, 2025 Billing Provider: BRITTNEY VERA DNP Common Visit Codes: [id number] INP/OBS CARE (HIGH) BRITTNEY VERA DNP Mar 13, 2025 21:41
[2025-03-13] MEDS ORDERED: MORPHINE SULFATE INJ 2 MG/ml SYRG IV PRN (21:45)
[2025-03-13] MEDS ORDERED: NITROGLYCERIN 0.4 MG SL TAB SL PRN (21:45)
[2025-03-14] VITALS (9 sets, daily range): BP systolic 118–139; BP diastolic 57–79; PULSE 60–76; RESP 16–18; TEMP 97.4–98.5; O2SAT 95–97
[2025-03-14] MEDS ORDERED: TRAZ-228 PO (02:05)
[2025-03-14 04:30] LABS: Urine Protein, UAD Negative (Negative)
[2025-03-14 06:41] LABS: Hematocrit 36.4 % (36.0-46.0); Hemoglobin 12.8 g/dL (12.2-16.2); Mean Corpuscular Hemoglobin 31.4 pg (28.0-32.0); Mean Corpuscular Volume 89.1 fL (80.0-100.0); Nucleated Red Blood Cells % 0.0 %
[2025-03-14 07:05] LABS: Alanine Aminotransferase 13 U/L (7-40); Alkaline Phosphatase 58 U/L (46-116); Anion Gap 10 (5-15); BUN/Creatinine Ratio 9.1 (10.0-20.0); Calcium 9.0 mg/dL (8.7-10.4); Carbon Dioxide 27 mmol/L (20-31); Chloride 106 mmol/L (98-107); Glucose 81 mg/dL (74-106); Potassium 3.9 mmol/L (3.5-5.1); Sodium 143 mmol/L (136-145); Total Protein 6.6 g/dL (5.7-8.2)
[2025-03-14 07:06] LABS: Albumin 4.0 g/dL (3.2-4.8); Bilirubin, Total 0.5 mg/dL (0.2-1.0)
[2025-03-14 07:07] LABS: Blood Urea Nitrogen 6 mg/dL (9-23)
[2025-03-14] MEDS: ACETAMINOPHEN 325 MG TAB PO PRN (13:51)
--- NOTE | 2025-03-14 14:57 | DVHPN2 ---
Subjective Patient seen and examined at bedside. Lots of diarrhea. Patient said she has about 3 BM since this morning. Patient has diarrhea for 1 month. Reviewed: Care Plan, H&P, Labs, Medications, Previous Orders, Radiology Changes from previous H/P or p: No Changes Eyes: No Pain, No Vision change, No Conjunctivae inflammation, No Eyelid inflammation, No Other, No Redness ENT: No Ear pain, No Ear discharge, No Nose pain, No Nose discharge, No Nose congestion, No Mouth pain, No Mouth swelling, No Throat pain, No Throat swelling, No Other Cardiovascular: No Chest Pain, No Palpitations, No Orthopnea, No Paroxysmal Noc. Dyspnea, No Edema, No Lt Headedness, No Other Respiratory: No Cough, No Dry, No Shortness of breath, No SOB with excertion, No Wheezing, No Hemoptysis, No Pleuritic Pain, No Sputum, No Other Gastrointestinal: No Nausea, No Vomiting; Abdominal Pain, Diarrhea; No Constipation, No Melena, No Hematochezia, No Other Genitourinary: No Dysuria, No Frequency, No Incontinence, No Hematuria, No Retention, No Other Musculoskeletal: No other, No neck pain, No shoulder pain, No arm pain, No back pain, No hand pain, No leg pain, No foot pain Skin: No Rash, No Lesions, No Jaundice, No Bruising, No Other Objective Vitals Vital Signs Date Time Temp Pulse Resp B/P (MAP) Pulse Ox O2 Delivery O2 Flow Rate FiO2 03/14/25 12:44 97.4 75 16 139/69 (92) 97 97.4 03/14/25 08:00 Room Air* 0 21 Intake/Output Intake and Output 03/14/25 07:00 Intake Total 586 ml Balance 586 ml Intake Oral 586 ml # Voids 1 General Appearance: Alert, Oriented X3, Cooperative, No acute distress HEENT: Atraumatic, PERRLA, EOMI, Mucous membr. moist/pink Neck: Supple Lungs: Clear to auscultation, Normal air movement Cardiovascular: Regular rate, Normal S1, Normal S2, No murmurs, Gallops, Rubs Abdomen: Normal bowel sounds, Soft Neuro: Cranial nerves 3-12 NL Psych/Mental Status: Mental status NL Medications Current Medications Medications Dose Ordered Sig/Lina Route Start Time Stop Time Status Last Admin Dose Admin Sodium Chloride 1,000 ml @ 60 mls/hr [id number] IV 03/13/25 20:45 03/13/25 22:40 60 MLS/HR Acetaminophen/ Hydrocodone Bitart 1 tab Q4HP PRN PO 03/13/25 20:45 Ondansetron HCl 4 mg Q4HP PRN IV 03/13/25 20:45 Acetaminophen 650 mg Q6HP PRN PO 03/13/25 20:45 03/14/25 13:51 650 MG Nitroglycerin 0.4 mg Q5MINP PRN SL 03/13/25 21:45 Morphine Sulfate 2 mg Q30M PRN IV 03/13/25 21:45 Laboratory Results Laboratory Tests 03/14/25 06:00 Chemistry Test 03/14/25 06:00 Albumin 4.0 g/dL (3.2-4.8) Calcium Level 9.0 mg/dL (8.7-10.4) Total Protein 6.6 g/dL (5.7-8.2) LFT Test 03/14/25 06:00 Alanine Aminotransferase (ALT) 13 U/L (7-40) Alkaline Phosphatase 58 U/L (46-116) Aspartate Amino Transferase (AST) 19 U/L (13-40) Total Bilirubin 0.5 mg/dL (0.2-1.0) Urinalysis Test 03/14/25 04:15 Urine Color Colorless (Yellow) Urine Clarity Clear (Clear) Urine pH 6.0 (5.0-9.0) Urine Specific [place] 1.018 (1.001-1.035) Urine Protein Negative (Negative) Urine Ketones Negative (Negative) Urine Blood Negative /uL (Negative) Urine Nitrite Negative (Negative) Urine Bilirubin Negative (Negative) Urine Urobilinogen Normal mg/dL (Negative) Urine Leukocyte Esterase Negative /uL (Negative) Urine RBC 1 /hpf (0 - 4) Urine Microscopic WBC 1 /HPF (0-5) Urine Squamous Epithelial Cells Few /hpf (<5) Urine Bacteria None seen /hpf (None Seen) Urine Glucose Normal mg/dL (Normal) Microbiology Microbiology Date/Time Source Procedure Growth Status 03/14/25 01:30 Nose MRSA Screen - Final Complete Labs and/or images reviewed: Labs reviewed by me Assessment/Plan Assessment/Plan Abdominal pain Hyperglycemia Left lower quadrant pain Diarrhea. Continue current management. will wait for stool culture and C. Diff Immodium as needed. Pain control with pain med Continue IV antibiotic. Plan discussed with: Patient Date of Service: Mar 14, 2025 Billing Provider: ZARA DE JESUS MD Common Visit Codes: [id number] INP/OBS CARE(HIGH) ZARA DE JESUS MD Mar 14, 2025 14:57
[2025-03-14] MEDS: LOPERAMIDE HCL 2 MG CAP/TAB PO PRN (15:56)
[2025-03-15] VITALS (7 sets, daily range): BP systolic 126–148; BP diastolic 65–75; PULSE 66–92; RESP 16–20; TEMP 96–98.9; O2SAT 94–97
[2025-03-15] MEDS ORDERED: DEXTROSE (50%) 50ML SYRG IV PRN (02:00)
[2025-03-15] MEDS: ACCU-CHEK COMFORT CURVE STRIP VI SCH (06:00)
[2025-03-15] MEDS: InsuLIN REG 1unit/0.01ml Soln (100units/ml) SC SCH (06:12)
[2025-03-15 07:49] LABS: Hematocrit 36.3 % (36.0-46.0); Hemoglobin 12.6 g/dL (12.2-16.2); Mean Corpuscular Hemoglobin 31.1 pg (28.0-32.0); Mean Corpuscular Volume 89.3 fL (80.0-100.0); Nucleated Red Blood Cells % 0.1 %
[2025-03-15 08:01] LABS: Anion Gap 11 (5-15); Carbon Dioxide 26 mmol/L (20-31); Chloride 105 mmol/L (98-107); Potassium 3.7 mmol/L (3.5-5.1); Sodium 142 mmol/L (136-145)
[2025-03-15 08:06] LABS: Calcium 8.7 mg/dL (8.7-10.4)
[2025-03-15 08:07] LABS: BUN/Creatinine Ratio 8.1 (10.0-20.0); Glucose 104 mg/dL (74-106)
[2025-03-15 08:08] LABS: Blood Urea Nitrogen 5 mg/dL (9-23)
--- NOTE | 2025-03-15 13:05 | DVHPN2 ---
Subjective Patient seen and examined at bedside. Lots of diarrhea. Patient said she has about 1 BM since this morning. Patient has diarrhea for 1 month. Today, patient diarrhea improved but she still has lots of cramping. Reviewed: Care Plan, H&P, Labs, Medications, Previous Orders, Radiology Changes from previous H/P or p: No Changes Eyes: No Pain, No Vision change, No Conjunctivae inflammation, No Eyelid inflammation, No Other, No Redness ENT: No Ear pain, No Ear discharge, No Nose pain, No Nose discharge, No Nose congestion, No Mouth pain, No Mouth swelling, No Throat pain, No Throat swelling, No Other Cardiovascular: No Chest Pain, No Palpitations, No Orthopnea, No Paroxysmal Noc. Dyspnea, No Edema, No Lt Headedness, No Other Respiratory: No Cough, No Dry, No Shortness of breath, No SOB with excertion, No Wheezing, No Hemoptysis, No Pleuritic Pain, No Sputum, No Other Gastrointestinal: No Nausea, No Vomiting; Abdominal Pain, Diarrhea; No Constipation, No Melena, No Hematochezia, No Other Genitourinary: No Dysuria, No Frequency, No Incontinence, No Hematuria, No Retention, No Other Musculoskeletal: No other, No neck pain, No shoulder pain, No arm pain, No back pain, No hand pain, No leg pain, No foot pain Skin: No Rash, No Lesions, No Jaundice, No Bruising, No Other Objective Vitals Vital Signs Date Time Temp Pulse Resp B/P (MAP) Pulse Ox O2 Delivery O2 Flow Rate FiO2 03/15/25 08:10 96.0 72 18 127/65 (85) 96 96.0 03/15/25 08:00 Room Air* 0 21 Intake/Output Intake and Output 03/15/25 07:00 Intake Total 2475 ml Balance 2475 ml Intake Oral 975 ml IV Total 900 ml Other 600 ml # Voids 2 # Bowel Movements 3 General Appearance: Alert, Oriented X3, Cooperative, No acute distress HEENT: Atraumatic, PERRLA, EOMI, Mucous membr. moist/pink Neck: Supple Lungs: Clear to auscultation, Normal air movement Cardiovascular: Regular rate, Normal S1, Normal S2, No murmurs, Gallops, Rubs Abdomen: Normal bowel sounds, Soft Neuro: Cranial nerves 3-12 NL Psych/Mental Status: Mental status NL Medications Current Medications Medications Dose Ordered Sig/Lina Route Start Time Stop Time Status Last Admin Dose Admin Sodium Chloride 1,000 ml @ 60 mls/hr [id number] IV 03/13/25 20:45 03/14/25 21:18 60 MLS/HR Acetaminophen/ Hydrocodone Bitart 1 tab Q4HP PRN PO 03/13/25 20:45 Ondansetron HCl 4 mg Q4HP PRN IV 03/13/25 20:45 Acetaminophen 650 mg Q6HP PRN PO 03/13/25 20:45 03/15/25 12:31 650 MG Nitroglycerin 0.4 mg Q5MINP PRN SL 03/13/25 21:45 Morphine Sulfate 2 mg Q30M PRN IV 03/13/25 21:45 Loperamide HCl 2 mg Q6HP PRN PO 03/14/25 15:30 03/14/25 15:56 2 MG Diagnostic Test (Pha) 1 strip ACHS 03/15/25 07:00 03/15/25 12:35 1 STRIP Insulin Human Regular ACHS SC 03/15/25 07:00 03/15/25 12:35 3 UNITS Dextrose 50 ml UD PRN IV 03/15/25 02:00 Laboratory Results Laboratory Tests 03/15/25 05:26 Chemistry Test 03/15/25 05:26 Calcium Level 8.7 mg/dL (8.7-10.4) Urinalysis Test 03/14/25 04:15 Urine Color Colorless (Yellow) Urine Clarity Clear (Clear) Urine pH 6.0 (5.0-9.0) Urine Specific [place] 1.018 (1.001-1.035) Urine Protein Negative (Negative) Urine Ketones Negative (Negative) Urine Blood Negative /uL (Negative) Urine Nitrite Negative (Negative) Urine Bilirubin Negative (Negative) Urine Urobilinogen Normal mg/dL (Negative) Urine Leukocyte Esterase Negative /uL (Negative) Urine RBC 1 /hpf (0 - 4) Urine Microscopic WBC 1 /HPF (0-5) Urine Squamous Epithelial Cells Few /hpf (<5) Urine Bacteria None seen /hpf (None Seen) Urine Glucose Normal mg/dL (Normal) Microbiology Microbiology Date/Time Source Procedure Growth Status 03/14/25 14:50 Stool Stool Culture - Preliminary Resulted 03/14/25 14:50 Stool Shiga Toxin I & II Pending Resulted 03/14/25 14:50 Stool Clostridium difficile Toxin Assay - Final Resulted 03/14/25 01:30 Nose MRSA Screen - Final Complete Labs and/or images reviewed: Labs reviewed by me Assessment/Plan Assessment/Plan Abdominal pain Hyperglycemia Left lower quadrant pain Diarrhea. Continue current management. Stool culture and C. Diff negative Immodium as needed for diarrhea. Pain control with pain med Continue IV antibiotic. Plan discussed with: Patient My Orders Orders - ZARA DE JESUS MD Procedure Category Date Status Time Loperamide Capsule PHA 03/14/25 In Process (Imodium Capsule) 15:30 Complete Blood Count LAB 03/16/25 Verified 05:00 Complete Blood Count LAB 03/17/25 Verified 05:00 Complete Blood Count LAB 03/18/25 Verified 05:00 Complete Blood Count LAB 03/19/25 Verified 05:00 Basic Metabolic Panel LAB 03/16/25 Verified 05:00 Basic Metabolic Panel LAB 03/17/25 Verified 05:00 Basic Metabolic Panel LAB 03/18/25 Verified 05:00 Basic Metabolic Panel LAB 03/19/25 Verified 05:00 Date of Service: Mar 15, 2025 Billing Provider: ZARA DE JESUS MD Common Visit Codes: [id number] INP/OBS CARE(HIGH) ZARA DE JESUS MD Mar 15, 2025 13:05
[2025-03-16] VITALS (7 sets, daily range): BP systolic 121–140; BP diastolic 68–81; PULSE 66–82; RESP 14–18; TEMP 97.3–98.6; O2SAT 94–97
[2025-03-16 07:32] LABS: Hematocrit 36.5 % (36.0-46.0); Hemoglobin 13.0 g/dL (12.2-16.2); Mean Corpuscular Hemoglobin 31.7 pg (28.0-32.0); Mean Corpuscular Volume 88.8 fL (80.0-100.0); Nucleated Red Blood Cells % 0.1 %
[2025-03-16 07:45] LABS: Anion Gap 11 (5-15); Carbon Dioxide 26 mmol/L (20-31); Chloride 105 mmol/L (98-107); Potassium 3.5 mmol/L (3.5-5.1); Sodium 142 mmol/L (136-145)
[2025-03-16 07:46] LABS: Calcium 9.0 mg/dL (8.7-10.4)
[2025-03-16 07:51] LABS: BUN/Creatinine Ratio 9.5 (10.0-20.0)
[2025-03-16 07:53] LABS: Blood Urea Nitrogen 6 mg/dL (9-23); Glucose 109 mg/dL (74-106)
--- NOTE | 2025-03-16 11:04 | DVHPN2 ---
Subjective Patient seen and examined at bedside. Diarrhea improved. C. Diff and culture negative. Reviewed: Care Plan, H&P, Labs, Medications, Previous Orders, Radiology Changes from previous H/P or p: No Changes Eyes: No Pain, No Vision change, No Conjunctivae inflammation, No Eyelid inflammation, No Other, No Redness ENT: No Ear pain, No Ear discharge, No Nose pain, No Nose discharge, No Nose congestion, No Mouth pain, No Mouth swelling, No Throat pain, No Throat swelling, No Other Cardiovascular: No Chest Pain, No Palpitations, No Orthopnea, No Paroxysmal Noc. Dyspnea, No Edema, No Lt Headedness, No Other Respiratory: No Cough, No Dry, No Shortness of breath, No SOB with excertion, No Wheezing, No Hemoptysis, No Pleuritic Pain, No Sputum, No Other Gastrointestinal: No Nausea, No Vomiting; Abdominal Pain, Diarrhea; No Constipation, No Melena, No Hematochezia, No Other Genitourinary: No Dysuria, No Frequency, No Incontinence, No Hematuria, No Retention, No Other Musculoskeletal: No other, No neck pain, No shoulder pain, No arm pain, No back pain, No hand pain, No leg pain, No foot pain Skin: No Rash, No Lesions, No Jaundice, No Bruising, No Other Objective Vitals Vital Signs Date Time Temp Pulse Resp B/P (MAP) Pulse Ox O2 Delivery O2 Flow Rate FiO2 03/16/25 08:45 98.4 79 14 136/76 (96) 95 98.4 03/16/25 08:00 Room Air* 0 21 Intake/Output Intake and Output 03/16/25 07:00 Intake Total 950 ml Balance 950 ml Intake Oral 950 ml # Voids 6 # Bowel Movements 1 General Appearance: Alert, Oriented X3, Cooperative, No acute distress HEENT: Atraumatic, PERRLA, EOMI, Mucous membr. moist/pink Neck: Supple Lungs: Clear to auscultation, Normal air movement Cardiovascular: Regular rate, Normal S1, Normal S2, No murmurs, Gallops, Rubs Abdomen: Normal bowel sounds, Soft Neuro: Cranial nerves 3-12 NL Psych/Mental Status: Mental status NL Medications Current Medications Medications Dose Ordered Sig/Lina Route Start Time Stop Time Status Last Admin Dose Admin Sodium Chloride 1,000 ml @ 60 mls/hr [id number] IV 03/13/25 20:45 03/15/25 22:45 60 MLS/HR Acetaminophen/ Hydrocodone Bitart 1 tab Q4HP PRN PO 03/13/25 20:45 Ondansetron HCl 4 mg Q4HP PRN IV 03/13/25 20:45 Acetaminophen 650 mg Q6HP PRN PO 03/13/25 20:45 03/16/25 09:08 650 MG Nitroglycerin 0.4 mg Q5MINP PRN SL 03/13/25 21:45 Morphine Sulfate 2 mg Q30M PRN IV 03/13/25 21:45 Loperamide HCl 2 mg Q6HP PRN PO 03/14/25 15:30 03/14/25 15:56 2 MG Diagnostic Test (Pha) 1 strip ACHS 03/15/25 07:00 03/16/25 05:52 1 STRIP Insulin Human Regular ACHS SC 03/15/25 07:00 03/15/25 12:35 3 UNITS Dextrose 50 ml UD PRN IV 03/15/25 02:00 Laboratory Results Laboratory Tests 03/16/25 06:51 Chemistry Test 03/16/25 06:51 Calcium Level 9.0 mg/dL (8.7-10.4) Urinalysis Test 03/14/25 04:15 Urine Color Colorless (Yellow) Urine Clarity Clear (Clear) Urine pH 6.0 (5.0-9.0) Urine Specific [place] 1.018 (1.001-1.035) Urine Protein Negative (Negative) Urine Ketones Negative (Negative) Urine Blood Negative /uL (Negative) Urine Nitrite Negative (Negative) Urine Bilirubin Negative (Negative) Urine Urobilinogen Normal mg/dL (Negative) Urine Leukocyte Esterase Negative /uL (Negative) Urine RBC 1 /hpf (0 - 4) Urine Microscopic WBC 1 /HPF (0-5) Urine Squamous Epithelial Cells Few /hpf (<5) Urine Bacteria None seen /hpf (None Seen) Urine Glucose Normal mg/dL (Normal) Microbiology Microbiology Date/Time Source Procedure Growth Status 03/14/25 14:50 Stool Stool Culture - Preliminary Resulted 03/14/25 14:50 Stool Shiga Toxin I & II - Final Resulted 03/14/25 14:50 Stool Clostridium difficile Toxin Assay - Final Resulted 03/14/25 01:30 Nose MRSA Screen - Final Complete Labs and/or images reviewed: Labs reviewed by me Assessment/Plan Assessment/Plan Abdominal pain Hyperglycemia Left lower quadrant pain Diarrhea. Continue current management. Stool culture and C. Diff negative Immodium as needed for diarrhea. Pain control with pain med Continue IV antibiotic flagyl and levaquin Appreciate GI input Continue immodium If diarrhea is not improved, will have colonoscopy. This medical document was created using an electronic medical record system with [employer] direct computerized dictation system. Although this document has been carefully reviewed, there may still be some phonetic and typographical errors. These areas are purely typographical due to imperfections of the software programs, and do not reflect any compromise in the patient's medical care. Plan discussed with: Patient Date of Service: Mar 16, 2025 Billing Provider: ZARA DE JESUS MD Common Visit Codes: [id number] INP/OBS CARE(HIGH) ZARA DE JESUS MD Mar 16, 2025 11:03
--- NOTE | 2025-03-16 21:47 | DVHINCON2 ---
Date of service: Mar 16, 2025 Referring Physician Kala Ocasio Reason for Consultation Chronic diarrhoea History of Present Illness The patient is a 74-year-old female who denies past medical history presented to [facility] ED with complaint of abdominal pain for the past 1 week. Patient reports she has been experiencing acute abdominal pain associated with diarrhea. Patient states she was seen here 2 weeks ago with similar symptoms and was diagnosed with viral gastroenteritis discharged home with Bentyl. Abdomen/pelvis CT shows no evidence of acute abdominal/pelvic process. Patient's stool for C diff and bacterial culture was negative. Patient is currently resting comfortably complaining of some abdominal cramping. She has not had any recent colonoscopy Past Medical History Hypercholesterolemia Hypertension Diabetes Anxiety Past Surgical History Hysterectomy Cholecystectomy Allergies: Coded Allergies: NO KNOWN ALLERGIES (Unverified , 03/01/25) Home Meds Active Scripts Acetaminophen (Acetaminophen) 500 Mg Tab, 500 MG PO Q4HP PRN, #30 TAB Prov:JYOTI SHABAZZ PAC 03/01/25 Ondansetron Odt 4MG Tab (ZOFRAN PO) 4 Mg Tb, 4 MG PO Q6HP PRN, #15 TAB ODT TAB-DISSOLVE IN MOUTH, THEN SWALLOW Prov:JYOTI SHABAZZ PAC 03/01/25 Dicyclomine Hcl (BENTYL CAPSULE) 10 Mg Cp, 1 CAP PO Q6HPRN, #20 CAP 0 Refills Prov:JYOTI SHABAZZ PAC 03/01/25 Reported Medications Trazodone Hcl (Trazodone Hcl) 100 Mg Tab, 20 MG PO QPM, TAB 03/14/25 Current Medications Current Medications Medications (Trade) Dose Ordered Sig/Lina Route PRN Reason Start Time Stop Time Status Last Admin Levofloxacin/ Dextrose 100 ml @ 100 mls/hr DAILY IV 03/17/25 10:00 Metronidazole 100 ml @ 100 mls/hr Q8HR IV 03/16/25 14:00 03/16/25 16:53 Vital Signs Vital Signs Date Time Temp Pulse Resp B/P (MAP) Pulse Ox O2 Delivery O2 Flow Rate FiO2 03/16/25 21:00 98.1 79 18 133/69 (90) 94 98.1 03/16/25 08:00 Room Air* 0 21 Physical Exam General Appearance: Alert, Oriented X3, Cooperative, No acute distress HEENT: Atraumatic, PERRLA, EOMI, Mucous membr. moist/pink Respiratory: Clear to auscultation, Normal air movement Cardiovascular: Regular rate, Normal S1, Normal S2, No murmurs Abdominal: Normal bowel sounds, Soft, No hepatospenomegaly, No masses, Other (Reports tenderness) Extremities: No clubbing, No cyanosis, No edema, Normal pulses Skin: No rashes, No breakdown, No significant lesion Neuro: Normal gait, Normal speech, Strength at 5/5 X4 ext, Normal tone, Sensation intact, Cranial nerves 3-12 NL, Reflexes 2+ Psych/Mental Status: Mental status NL, Mood NL Labs/Diagnostic Data Labs Test 03/16/25 16:44 03/16/25 06:51 03/14/25 06:00 03/14/25 04:15 Range/Units POC Glucose 122 H 70-106 mg/dl White Blood Count 6.2 4.4-10.8 10^3/uL Red Blood Count 4.11 4.0-5.20 10^6/uL Hemoglobin 13.0 12.2-16.2 g/dL Hematocrit 36.5 36.0-46.0 % Mean Corpuscular Volume 88.8 80.0-100.0 fL Mean Corpuscular Hemoglobin 31.7 28.0-32.0 pg Mean Corpuscular Hemoglobin Concent 35.7 32.0-36.0 g/dL Red Cell Distribution Width 12.6 11.8-14.3 % Platelet Count 289 140-450 10^3/uL Mean Platelet Volume 6.7 L 6.9-10.8 fL Neutrophils (%) (Auto) 68.3 37.0-80.0 % Lymphocytes (%) (Auto) 21.7 10.0-50.0 % Monocytes (%) (Auto) 6.6 0.0-12.0 % Eosinophils (%) (Auto) 3.0 0.0-7.0 % Basophils (%) (Auto) 0.4 0.0-2.0 % Neutrophils # (Auto) 4.3 1.6-8.6 10 ^3/uL Lymphocytes # (Auto) 1.4 0.4-5.4 10 ^3/uL Monocytes # (Auto) 0.4 0-1.3 10 ^3/uL Eosinophils # (Auto) 0.2 0-0.8 10 ^3/uL Basophils # (Auto) 0 0-0.2 10 ^3/uL Nucleated Red Blood Cells 0.1 % Sodium Level 142 136-145 mmol/L Potassium Level 3.5 3.5-5.1 mmol/L Chloride Level 105 98-107 mmol/L Carbon Dioxide Level 26 20-31 mmol/L Anion Gap 11 5-15 Blood Urea Nitrogen 6 L 9-23 mg/dL Creatinine 0.63 0.550-1.02 mg/dL Glomerular Filtration Rate Calc 94 >90 mL/min BUN/Creatinine Ratio 9.5 L 10.0-20.0 Serum Glucose 109 H 74-106 mg/dL Calcium Level 9.0 8.7-10.4 mg/dL Total Bilirubin 0.5 0.2-1.0 mg/dL Aspartate Amino Transferase (AST) 19 13-40 U/L Alanine Aminotransferase (ALT) 13 7-40 U/L Alkaline Phosphatase 58 46-116 U/L Total Protein 6.6 5.7-8.2 g/dL Albumin 4.0 3.2-4.8 g/dL Urine Color Colorless Yellow Urine Clarity Clear Clear Urine pH 6.0 5.0-9.0 Urine Specific [place] 1.018 1.001-1.035 Urine Protein Negative Negative Urine Ketones Negative Negative Urine Blood Negative Negative /uL Urine Nitrite Negative Negative Urine Bilirubin Negative Negative Urine Urobilinogen Normal Negative mg/dL Urine Leukocyte Esterase Negative Negative /uL Urine RBC 1 0 - 4 /hpf Urine Microscopic WBC 1 0-5 /HPF Urine Squamous Epithelial Cells Few <5 /hpf Urine Bacteria None seen None Seen /hpf Urine Glucose Normal Normal mg/dL Test 03/13/25 13:52 Range/Units Lipase 48 12-53 U/L Microbiology Date/Time Source Procedure Growth Status 03/14/25 14:50 Stool Stool Culture - Preliminary Resulted 03/14/25 14:50 Stool Shiga Toxin I & II - Final Resulted 03/14/25 14:50 Stool Clostridium difficile Toxin Assay - Final Resulted 03/14/25 01:30 Nose MRSA Screen - Final Complete Abd Pelvic CT SCAN IMPRESSION: 1. No CT evidence of an acute abdominal/pelvic process. 2. Trace possible sliding hiatal hernia. Problems(with codes): (1) Diarrhea (2) Left lower quadrant pain (3) Abdominal pain (4) Viral gastroenteritis Plan/Recommendation Plan Probable IBS diarrhea aggravated by recent viral gastroenteritis rule out colitis Check stool for occult blood and WBC Continue IV antibiotics Trial of Imodium or cholestyramine to help with the diarrhea If symptoms persist I will schedule a colonoscopy in the next 24-48 hours Plan discussed with: Patient FELICIA HUYNH MD Mar 16, 2025 21:46
[2025-03-17] VITALS (8 sets, daily range): BP systolic 126–134; BP diastolic 70–78; PULSE 69–89; RESP 16–18; TEMP 97–98.7; O2SAT 94–98
[2025-03-17 05:34] LABS: Chloride 104 mmol/L (98-107); Potassium 3.7 mmol/L (3.5-5.1); Sodium 142 mmol/L (136-145)
[2025-03-17 05:35] LABS: Anion Gap 12 (5-15); Carbon Dioxide 26 mmol/L (20-31)
[2025-03-17 05:36] LABS: Calcium 9.1 mg/dL (8.7-10.4)
[2025-03-17 05:41] LABS: BUN/Creatinine Ratio 8.1 (10.0-20.0)
[2025-03-17 05:51] LABS: Hematocrit 39.2 % (36.0-46.0); Hemoglobin 14.0 g/dL (12.2-16.2); Mean Corpuscular Hemoglobin 32.0 pg (28.0-32.0); Mean Corpuscular Volume 90.0 fL (80.0-100.0); Nucleated Red Blood Cells % 0.0 %
[2025-03-17 05:54] LABS: Blood Urea Nitrogen 6 mg/dL (9-23); Glucose 122 mg/dL (74-106)
--- NOTE | 2025-03-17 10:25 | DVHDS2 ---
Discharge Summary Date of Admission Mar 13, 2025 at 21:40 Labs/Diagnostic Data: Laboratory Results Test 03/17/25 06:18 03/17/25 05:10 03/14/25 06:00 03/14/25 04:15 POC Glucose 118 mg/dl (70-106) White Blood Count 7.1 10^3/uL (4.4-10.8) Red Blood Count 4.36 10^6/uL (4.0-5.20) Hemoglobin 14.0 g/dL (12.2-16.2) Hematocrit 39.2 % (36.0-46.0) Mean Corpuscular Volume 90.0 fL (80.0-100.0) Mean Corpuscular Hemoglobin 32.0 pg (28.0-32.0) Mean Corpuscular Hemoglobin Concent 35.6 g/dL (32.0-36.0) Red Cell Distribution Width 12.3 % (11.8-14.3) Platelet Count 320 10^3/uL (140-450) Mean Platelet Volume 6.5 fL (6.9-10.8) Neutrophils (%) (Auto) 63.1 % (37.0-80.0) Lymphocytes (%) (Auto) 26.3 % (10.0-50.0) Monocytes (%) (Auto) 6.9 % (0.0-12.0) Eosinophils (%) (Auto) 3.2 % (0.0-7.0) Basophils (%) (Auto) 0.5 % (0.0-2.0) Neutrophils # (Auto) 4.5 10 ^3/uL (1.6-8.6) Lymphocytes # (Auto) 1.9 10 ^3/uL (0.4-5.4) Monocytes # (Auto) 0.5 10 ^3/uL (0-1.3) Eosinophils # (Auto) 0.2 10 ^3/uL (0-0.8) Basophils # (Auto) 0 10 ^3/uL (0-0.2) Nucleated Red Blood Cells 0.0 % Sodium Level 142 mmol/L (136-145) Potassium Level 3.7 mmol/L (3.5-5.1) Chloride Level 104 mmol/L (98-107) Carbon Dioxide Level 26 mmol/L (20-31) Anion Gap 12 (5-15) Blood Urea Nitrogen 6 mg/dL (9-23) Creatinine 0.74 mg/dL (0.550-1.02) Glomerular Filtration Rate Calc 85 mL/min (>90) BUN/Creatinine Ratio 8.1 (10.0-20.0) Serum Glucose 122 mg/dL (74-106) Calcium Level 9.1 mg/dL (8.7-10.4) Total Bilirubin 0.5 mg/dL (0.2-1.0) Aspartate Amino Transferase (AST) 19 U/L (13-40) Alanine Aminotransferase (ALT) 13 U/L (7-40) Alkaline Phosphatase 58 U/L (46-116) Total Protein 6.6 g/dL (5.7-8.2) Albumin 4.0 g/dL (3.2-4.8) Urine Color Colorless (Yellow) Urine Clarity Clear (Clear) Urine pH 6.0 (5.0-9.0) Urine Specific [place] 1.018 (1.001-1.035) Urine Protein Negative (Negative) Urine Ketones Negative (Negative) Urine Blood Negative /uL (Negative) Urine Nitrite Negative (Negative) Urine Bilirubin Negative (Negative) Urine Urobilinogen Normal mg/dL (Negative) Urine Leukocyte Esterase Negative /uL (Negative) Urine RBC 1 /hpf (0 - 4) Urine Microscopic WBC 1 /HPF (0-5) Urine Squamous Epithelial Cells Few /hpf (<5) Urine Bacteria None seen /hpf (None Seen) Urine Glucose Normal mg/dL (Normal) Test 03/13/25 13:52 Lipase 48 U/L (12-53) Other Laboratory Tests 03/17/25 05:10 Discharge Instruct/Medications Scheduled Dicyclomine Hcl (Bentyl Capsule), 1 CAP PO Q6HPRN Levofloxacin Hemihydrate (Levaquin 500 Mg), 1 TAB PO DAILY Metronidazole (Flagyl), 1 TAB PO TID Trazodone Hcl (Trazodone Hcl), 20 MG PO QPM, (Reported) Scheduled PRN Acetaminophen (Acetaminophen), 500 MG PO Q4HP PRN Ondansetron Odt 4MG Tab (Zofran Po), 4 MG PO Q6HP PRN Discharge Statement: "Patient was advised to return to the ER or call 911 if any headaches, dizziness, shortness of breath, chest pain, abdominal pain, bleeding, fevers, or worsening of medical condition. Patient was counseled about treatment plan, medications, possible side effects, patientverbalized understanding. All questions were answered to the best of my ability. This discharge took greater then 30 minutes in planning, reviewing documentation, counseling the patient, and discussing with other team members." ASSESSMENT ASSESSMENT Assessment ZARA DE JESUS MD Mar 17, 2025 10:25
--- NOTE | 2025-03-17 19:29 | DVHPN2 ---
Progress Note - Dictate Date Seen: Mar 17, 2025 Medical Necessity Reason Pt with a Central, PICC or Fol: No Subjective No new complaints, patient is resting comfortably Patient has been on a carb controlled diet which she is tolerating well There was no further episodes of diarrhea in fact she has not had a bowel movement today and stool samples could not be collected vital signs Vital Sign Date Time Temp Pulse Resp B/P (MAP) Pulse Ox O2 Delivery O2 Flow Rate FiO2 03/17/25 16:47 97.2 71 16 134/70 (91) 95 97.2 03/17/25 08:00 Room Air* 0 21 Total Intake and Output 03/16/25 03/16/25 03/17/25 15:00 23:00 07:00 Intake Total 200 ml 1000 ml Balance 200 ml 1000 ml medications Current Medications Medications Dose Ordered Sig/Lina Route Start Time Stop Time Status Last Admin Dose Admin Sodium Chloride 1,000 ml @ 60 mls/hr [id number] IV 03/13/25 20:45 03/17/25 08:05 60 MLS/HR Acetaminophen/ Hydrocodone Bitart 1 tab Q4HP PRN PO 03/13/25 20:45 Ondansetron HCl 4 mg Q4HP PRN IV 03/13/25 20:45 Acetaminophen 650 mg Q6HP PRN PO 03/13/25 20:45 03/16/25 09:08 650 MG Nitroglycerin 0.4 mg Q5MINP PRN SL 03/13/25 21:45 Morphine Sulfate 2 mg Q30M PRN IV 03/13/25 21:45 Loperamide HCl 2 mg Q6HP PRN PO 03/14/25 15:30 03/14/25 15:56 2 MG Diagnostic Test (Pha) 1 strip ACHS 03/15/25 07:00 03/17/25 17:01 1 STRIP Insulin Human Regular ACHS SC 03/15/25 07:00 03/17/25 11:30 3 UNITS Dextrose 50 ml UD PRN IV 03/15/25 02:00 Levofloxacin/ Dextrose 100 ml @ 100 mls/hr DAILY IV 03/17/25 10:00 03/17/25 10:09 100 MLS/HR Metronidazole 100 ml @ 100 mls/hr Q8HR IV 03/16/25 14:00 03/17/25 14:00 100 MLS/HR objective General Appearance: Alert, Oriented X3, Cooperative, No acute distress HEENT: Atraumatic, PERRLA, EOMI, Mucous membr. moist/pink Respiratory: Clear to auscultation, Normal air movement Cardiovascular: Regular rate, Normal S1, Normal S2, No murmurs Abdominal: Normal bowel sounds, Soft, No hepatospenomegaly, No masses, Other (Reports tenderness) Extremities: No clubbing, No cyanosis, No edema, Normal pulses Skin: No rashes, No breakdown, No significant lesion Neuro: Normal gait, Normal speech, Strength at 5/5 X4 ext, Normal tone, Sensation intact, Cranial nerves 3-12 NL, Reflexes 2+ Psych/Mental Status: Mental status NL, Mood NL laboratory and microbiology Laboratory Tests 03/17/25 05:10 Test 03/17/25 05:10 Range/Units Serum Glucose 122 H 74-106 mg/dL Problems(with codes): (1) Diarrhea (2) Viral gastroenteritis (3) Left lower quadrant pain Prognosis Plan Probable IBS diarrhea aggravated by recent viral gastroenteritis rule out colitis Awaiting stool for occult blood and WBC On IV antibiotics Trial of Imodium or cholestyramine to help with the diarrhea Patient's symptoms appeared to be resolving and continue conservative management for now If clinically stable with no further diarrhea then patient could be stable for discharge tomorrow She was advised to follow up in my office as an outpatient to arrange elective screening colonoscopy Plan discussed with: Patient, Other (Nurse) FELICIA HUYNH MD Mar 17, 2025 19:29
[2025-03-18 01:00] VITALS: BP 116/70; PULSE 96; RESP 17; TEMP 98; O2SAT 93
[2025-03-18 05:00] VITALS: BP 116/70; PULSE 83; RESP 17; TEMP 99.4; O2SAT 95
[2025-03-18 06:03] LABS: Hematocrit 36.4 % (36.0-46.0); Hemoglobin 12.8 g/dL (12.2-16.2); Mean Corpuscular Hemoglobin 31.4 pg (28.0-32.0); Mean Corpuscular Volume 89.5 fL (80.0-100.0); Nucleated Red Blood Cells % 0.0 %
--- NOTE | 2025-03-18 06:07 | DVHPN2 ---
Subjective Patient seen and examined at bedside. Diarrhea improved. C. Diff and culture negative. Reviewed: Care Plan, H&P, Labs, Medications, Previous Orders, Radiology Changes from previous H/P or p: No Changes Eyes: No Pain, No Vision change, No Conjunctivae inflammation, No Eyelid inflammation, No Other, No Redness ENT: No Ear pain, No Ear discharge, No Nose pain, No Nose discharge, No Nose congestion, No Mouth pain, No Mouth swelling, No Throat pain, No Throat swelling, No Other Cardiovascular: No Chest Pain, No Palpitations, No Orthopnea, No Paroxysmal Noc. Dyspnea, No Edema, No Lt Headedness, No Other Respiratory: No Cough, No Dry, No Shortness of breath, No SOB with excertion, No Wheezing, No Hemoptysis, No Pleuritic Pain, No Sputum, No Other Gastrointestinal: No Nausea, No Vomiting; Abdominal Pain, Diarrhea; No Constipation, No Melena, No Hematochezia, No Other Genitourinary: No Dysuria, No Frequency, No Incontinence, No Hematuria, No Retention, No Other Musculoskeletal: No other, No neck pain, No shoulder pain, No arm pain, No back pain, No hand pain, No leg pain, No foot pain Skin: No Rash, No Lesions, No Jaundice, No Bruising, No Other Objective Vitals Vital Signs Date Time Temp Pulse Resp B/P (MAP) Pulse Ox O2 Delivery O2 Flow Rate FiO2 03/18/25 05:00 99.4 83 17 116/70 (85) 95 99.4 03/17/25 20:00 Room Air* 0 21 Intake/Output Intake and Output 03/18/25 07:00 Intake Total 1525 ml Output Total 300 ml Balance 1225 ml Intake Oral 425 ml IV Total 1100 ml Output Urine Total 300 ml # Voids 3 # Bowel Movements 1 General Appearance: Alert, Oriented X3, Cooperative, No acute distress HEENT: Atraumatic, PERRLA, EOMI, Mucous membr. moist/pink Neck: Supple Lungs: Clear to auscultation, Normal air movement Cardiovascular: Regular rate, Normal S1, Normal S2, No murmurs, Gallops, Rubs Abdomen: Normal bowel sounds, Soft Neuro: Cranial nerves 3-12 NL Psych/Mental Status: Mental status NL Medications Current Medications Medications Dose Ordered Sig/Lina Route Start Time Stop Time Status Last Admin Dose Admin Sodium Chloride 1,000 ml @ 60 mls/hr [id number] IV 03/13/25 20:45 03/18/25 05:34 60 MLS/HR Acetaminophen/ Hydrocodone Bitart 1 tab Q4HP PRN PO 03/13/25 20:45 Ondansetron HCl 4 mg Q4HP PRN IV 03/13/25 20:45 Acetaminophen 650 mg Q6HP PRN PO 03/13/25 20:45 03/16/25 09:08 650 MG Nitroglycerin 0.4 mg Q5MINP PRN SL 03/13/25 21:45 Morphine Sulfate 2 mg Q30M PRN IV 03/13/25 21:45 Loperamide HCl 2 mg Q6HP PRN PO 03/14/25 15:30 03/14/25 15:56 2 MG Diagnostic Test (Pha) 1 strip ACHS 03/15/25 07:00 03/17/25 21:28 1 STRIP Insulin Human Regular ACHS SC 03/15/25 07:00 03/17/25 21:37 3 UNITS Dextrose 50 ml UD PRN IV 03/15/25 02:00 Levofloxacin/ Dextrose 100 ml @ 100 mls/hr DAILY IV 03/17/25 10:00 03/17/25 10:09 100 MLS/HR Metronidazole 100 ml @ 100 mls/hr Q8HR IV 03/16/25 14:00 03/18/25 05:31 100 MLS/HR Laboratory Results Chemistry Test 03/18/25 04:50 Calcium Level Pending Urinalysis Test 03/14/25 04:15 Urine Color Colorless (Yellow) Urine Clarity Clear (Clear) Urine pH 6.0 (5.0-9.0) Urine Specific [place] 1.018 (1.001-1.035) Urine Protein Negative (Negative) Urine Ketones Negative (Negative) Urine Blood Negative /uL (Negative) Urine Nitrite Negative (Negative) Urine Bilirubin Negative (Negative) Urine Urobilinogen Normal mg/dL (Negative) Urine Leukocyte Esterase Negative /uL (Negative) Urine RBC 1 /hpf (0 - 4) Urine Microscopic WBC 1 /HPF (0-5) Urine Squamous Epithelial Cells Few /hpf (<5) Urine Bacteria None seen /hpf (None Seen) Urine Glucose Normal mg/dL (Normal) Microbiology Microbiology Date/Time Source Procedure Growth Status 03/14/25 14:50 Stool Stool Culture - Preliminary Resulted 03/14/25 14:50 Stool Shiga Toxin I & II - Final Resulted 03/14/25 14:50 Stool Clostridium difficile Toxin Assay - Final Resulted 03/14/25 01:30 Nose MRSA Screen - Final Complete Labs and/or images reviewed: Labs reviewed by me Assessment/Plan Assessment/Plan Abdominal pain Hyperglycemia Left lower quadrant pain Diarrhea. Continue current management. Stool culture and C. Diff negative Immodium as needed for diarrhea. Pain control with pain med Continue IV antibiotic flagyl and levaquin Appreciate GI input Continue immodium If diarrhea is not improved, will have colonoscopy. Waiting for stool WBC and occult blood. This medical document was created using an electronic medical record system with [employer] direct computerized dictation system. Although this document has been carefully reviewed, there may still be some phonetic and typographical errors. These areas are purely typographical due to imperfections of the software programs, and do not reflect any compromise in the patient's medical care. Plan discussed with: Patient Date of Service: Mar 17, 2025 Billing Provider: ZARA DE JESUS MD Common Visit Codes: [id number] INP/OBS CARE(HIGH) ZARA DE JESUS MD Mar 18, 2025 06:07
[2025-03-18 06:12] LABS: Potassium 3.7 mmol/L (3.5-5.1); Sodium 142 mmol/L (136-145)
[2025-03-18 06:13] LABS: Anion Gap 12 (5-15); Carbon Dioxide 23 mmol/L (20-31)
[2025-03-18 06:14] LABS: Calcium 9.0 mg/dL (8.7-10.4)
[2025-03-18 06:18] LABS: BUN/Creatinine Ratio 7.7 (10.0-20.0)
[2025-03-18 06:30] LABS: Blood Urea Nitrogen 5 mg/dL (9-23); Chloride 107 mmol/L (98-107); Glucose 139 mg/dL (74-106)
[2025-03-18 08:00] VITALS: PULSE 73; RESP 17; O2SAT 96
[2025-03-18 09:40] VITALS: BP 121/71; PULSE 73; RESP 17; TEMP 98.3; O2SAT 96
[2025-03-18] MEDS ORDERED: METR-344 PO (10:33)
[2025-03-18] MEDS ORDERED: LEVO500T91 PO (10:33)
--- NOTE | 2025-03-18 10:34 | DVHDS2 ---
Discharge Summary Date of Admission Mar 13, 2025 at 21:40 Date of Discharge: Mar 18, 2025 Admitting Diagnosis Abdominal pain Hyperglycemia Left lower quadrant pain Diarrhea. Labs/Diagnostic Data: Laboratory Results Test 03/18/25 09:00 03/18/25 06:09 03/18/25 04:50 03/14/25 06:00 POC Glucose 150 mg/dl (70-106) White Blood Count 6.2 10^3/uL (4.4-10.8) Red Blood Count 4.07 10^6/uL (4.0-5.20) Hemoglobin 12.8 g/dL (12.2-16.2) Hematocrit 36.4 % (36.0-46.0) Mean Corpuscular Volume 89.5 fL (80.0-100.0) Mean Corpuscular Hemoglobin 31.4 pg (28.0-32.0) Mean Corpuscular Hemoglobin Concent 35.1 g/dL (32.0-36.0) Red Cell Distribution Width 12.6 % (11.8-14.3) Platelet Count 293 10^3/uL (140-450) Mean Platelet Volume 6.9 fL (6.9-10.8) Neutrophils (%) (Auto) 59.2 % (37.0-80.0) Lymphocytes (%) (Auto) 26.8 % (10.0-50.0) Monocytes (%) (Auto) 9.3 % (0.0-12.0) Eosinophils (%) (Auto) 4.3 % (0.0-7.0) Basophils (%) (Auto) 0.4 % (0.0-2.0) Neutrophils # (Auto) 3.7 10 ^3/uL (1.6-8.6) Lymphocytes # (Auto) 1.7 10 ^3/uL (0.4-5.4) Monocytes # (Auto) 0.6 10 ^3/uL (0-1.3) Eosinophils # (Auto) 0.3 10 ^3/uL (0-0.8) Basophils # (Auto) 0 10 ^3/uL (0-0.2) Nucleated Red Blood Cells 0.0 % Sodium Level 142 mmol/L (136-145) Potassium Level 3.7 mmol/L (3.5-5.1) Chloride Level 107 mmol/L (98-107) Carbon Dioxide Level 23 mmol/L (20-31) Anion Gap 12 (5-15) Blood Urea Nitrogen 5 mg/dL (9-23) Creatinine 0.65 mg/dL (0.550-1.02) Glomerular Filtration Rate Calc 93 mL/min (>90) BUN/Creatinine Ratio 7.7 (10.0-20.0) Serum Glucose 139 mg/dL (74-106) Calcium Level 9.0 mg/dL (8.7-10.4) Total Bilirubin 0.5 mg/dL (0.2-1.0) Aspartate Amino Transferase (AST) 19 U/L (13-40) Alanine Aminotransferase (ALT) 13 U/L (7-40) Alkaline Phosphatase 58 U/L (46-116) Total Protein 6.6 g/dL (5.7-8.2) Albumin 4.0 g/dL (3.2-4.8) Test 03/14/25 04:15 03/13/25 13:52 Urine Color Colorless (Yellow) Urine Clarity Clear (Clear) Urine pH 6.0 (5.0-9.0) Urine Specific [place] 1.018 (1.001-1.035) Urine Protein Negative (Negative) Urine Ketones Negative (Negative) Urine Blood Negative /uL (Negative) Urine Nitrite Negative (Negative) Urine Bilirubin Negative (Negative) Urine Urobilinogen Normal mg/dL (Negative) Urine Leukocyte Esterase Negative /uL (Negative) Urine RBC 1 /hpf (0 - 4) Urine Microscopic WBC 1 /HPF (0-5) Urine Squamous Epithelial Cells Few /hpf (<5) Urine Bacteria None seen /hpf (None Seen) Urine Glucose Normal mg/dL (Normal) Lipase 48 U/L (12-53) Other Laboratory Tests 03/18/25 04:50 Brief Hx & Hospital Course: This is a 74 years old female come to emergency department because severe abdominal pain with diarrhea. The patient had diarrhea for two weeks. She had been in the ER for the same problem and was sent home with some Bentyl. The patient states she took Bentyl but the pain is not resolved in the diarrhea continuing. The patient was admitted. The patient was given IV fluid resuscitation. The patient's stool was sent for C diff and stool culture. Is showed a negative for C diff and negative for any bacteria in the stool. Stool for WBC and Hemoccult is also negative. The patient has seen by Dr. Little, GI specialist. Recommend outpatient colonoscopy. The patient was also received IV antibiotic with IV Flagyl and Levaquin. Despite no infectious showed in her stool with the IV antibiotic the patient's diarrhea resolved. The patient will be discharged home today. The patient will continuing antibiotic for 10 more days. Advised the patient to follow up with Dr. Little as outpatient for colonoscopy. Activity as tolerated. Diet per home diet. Physical exam: HEENT: Normocephalic atraumatic pupils equal react to light and accommodation. Extraocular muscles intact, conjunctiva pink, oropharynx moist, no thrush, no exudate. Lymphatic: No lymphadenopathy Cardiovascular exam: S1, S2 was heard. No murmurs, rubs, gallops Lung: Clear on auscultation bilaterally, no wheeze, rale, rhonchi. GI: Abdominal soft, nondistended, nontenderness, positive bowel sounds. Extremity: No crepitus, cyanosis, edema. Pedal pulses present bilateral. Full range of motion. Skin: Normal turgor, no rash. Psych: Alert, oriented x3. Neurology: No focal deficits, cranial nerve II to XII grossly intact. This medical document was created using an electronic medical record system with [employer] direct computerized dictation system. Although this document has been carefully reviewed, there may still be some phonetic and typographical errors. These areas are purely typographical due to imperfections of the software programs, and do not reflect any compromise in the patient's medical care. Condition at Discharge: Stable Final Diagnosis/Problems List Diarrhea probable IBS diarrhea aggravated by recent viral gastroenteritis rule out colitis Abdominal pain Hyperglycemia Left lower quadrant pain Discharge Disposition: Home Discharge Instruct/Medications Diet: Regular Activity: No Restrictions, As Tolerated Follow Up/Referral: pcp 1-2 weeks GI, dr Little per schedule Medications: see med list Scheduled Dicyclomine Hcl (Bentyl Capsule), 1 CAP PO Q6HPRN Levofloxacin Hemihydrate (Levaquin 500 Mg), 1 TAB PO DAILY Metronidazole (Flagyl), 1 TAB PO TID Trazodone Hcl (Trazodone Hcl), 20 MG PO QPM, (Reported) Scheduled PRN Acetaminophen (Acetaminophen), 500 MG PO Q4HP PRN Ondansetron Odt 4MG Tab (Zofran Po), 4 MG PO Q6HP PRN Discharge Statement: "Patient was advised to return to the ER or call 911 if any headaches, dizziness, shortness of breath, chest pain, abdominal pain, bleeding, fevers, or worsening of medical condition. Patient was counseled about treatment plan, medications, possible side effects, patientverbalized understanding. All questions were answered to the best of my ability. This discharge took greater then 30 minutes in planning, reviewing documentation, counseling the patient, and discussing with other team members." ASSESSMENT ASSESSMENT Assessment diarrhea Date of Service: Mar 18, 2025 Billing Provider: ZARA DE JESUS MD Common Visit Codes: 25466-GTG/OBS DISCH DAY >30min ZARA DE JESUS MD Mar 18, 2025 10:34
[2025-03-18 13:00] VITALS: BP 121/68; PULSE 92; RESP 17; TEMP 98.2; O2SAT 94
--- NOTE | 2025-03-18 13:45 | DVHPN2 ---
Progress Note - Dictate Date Seen: Mar 18, 2025 Medical Necessity Reason Pt with a Central, PICC or Fol: No Subjective No new complaints, patient is resting comfortably Patient has been on a carb controlled diet which she is tolerating well There was no further episodes of diarrhea in fact she has not had a bowel movement today and stool samples could not be collected vital signs Vital Sign Date Time Temp Pulse Resp B/P (MAP) Pulse Ox O2 Delivery O2 Flow Rate FiO2 03/18/25 13:00 98.2 92 17 121/68 (85) 94 98.2 03/18/25 08:00 Room Air* 0 21 Total Intake and Output 03/17/25 03/17/25 03/18/25 15:00 23:00 07:00 Intake Total 525 ml 1100 ml Output Total 300 ml Balance 525 ml 800 ml medications Current Medications Medications Dose Ordered Sig/Lina Route Start Time Stop Time Status Last Admin Dose Admin Sodium Chloride 1,000 ml @ 60 mls/hr [id number] IV 03/13/25 20:45 03/18/25 05:34 60 MLS/HR Acetaminophen/ Hydrocodone Bitart 1 tab Q4HP PRN PO 03/13/25 20:45 Ondansetron HCl 4 mg Q4HP PRN IV 03/13/25 20:45 Acetaminophen 650 mg Q6HP PRN PO 03/13/25 20:45 03/16/25 09:08 650 MG Nitroglycerin 0.4 mg Q5MINP PRN SL 03/13/25 21:45 Morphine Sulfate 2 mg Q30M PRN IV 03/13/25 21:45 Loperamide HCl 2 mg Q6HP PRN PO 03/14/25 15:30 03/14/25 15:56 2 MG Diagnostic Test (Pha) 1 strip ACHS 03/15/25 07:00 03/18/25 11:56 1 STRIP Insulin Human Regular ACHS SC 03/15/25 07:00 03/18/25 06:13 2 UNITS Dextrose 50 ml UD PRN IV 03/15/25 02:00 Levofloxacin/ Dextrose 100 ml @ 100 mls/hr DAILY IV 03/17/25 10:00 03/18/25 10:00 100 MLS/HR Metronidazole 100 ml @ 100 mls/hr Q8HR IV 03/16/25 14:00 03/18/25 05:31 100 MLS/HR objective General Appearance: Alert, Oriented X3, Cooperative, No acute distress HEENT: Atraumatic, PERRLA, EOMI, Mucous membr. moist/pink Respiratory: Clear to auscultation, Normal air movement Cardiovascular: Regular rate, Normal S1, Normal S2, No murmurs Abdominal: Normal bowel sounds, Soft, No hepatospenomegaly, No masses, Other (Reports tenderness) Extremities: No clubbing, No cyanosis, No edema, Normal pulses Skin: No rashes, No breakdown, No significant lesion Neuro: Normal gait, Normal speech, Strength at 5/5 X4 ext, Normal tone, Sensation intact, Cranial nerves 3-12 NL, Reflexes 2+ Psych/Mental Status: Mental status NL, Mood NL laboratory and microbiology Laboratory Tests 03/18/25 04:50 Test 03/18/25 04:50 Range/Units Serum Glucose 139 H 74-106 mg/dL Problems(with codes): (1) Diarrhea (2) Viral gastroenteritis (3) Left lower quadrant pain Prognosis Plan Discharge planning is in progress Patient was given my contact information Patient stated she has an appointment my office on 04/01/2025 We will schedule outpatient elective colonoscopy Plan discussed with: Patient FELICIA HUYNH MD Mar 18, 2025 13:45
== END 2025-03-18 13:45 | disposition home or self-care (01) | DRG 392 ==
LOC: ER 11:33 → OVERFLOW 21:40 → EAST 23:55
PROVIDERS: ADMIT Internal Medicine; ATTEND Internal Medicine
DX: K58.0 Irritable bowel syndrome with diarrhea (principal); E11.65 Type 2 diabetes mellitus with hyperglycemia; E78.00 Pure hypercholesterolemia, unspecified; I10 Essential (primary) hypertension; F41.9 Anxiety disorder, unspecified; Z90.710 Acquired absence of both cervix and uterus; Z90.49 Acquired absence of other specified parts of digestive tract
CPT/HCPCS: 36415; 74176; 74177; 80048; 80053; 81001; 82270; 82962; 83690; 85025; 85048; 87045; 87081; 87427; 87493; 96360; G0378; J1815; J1956; J3490

== ENCOUNTER 2025-04-06 08:26 | Outpatient (CLI) | payer MEDICAID ==
[~2025-04-06 08:26] MED LIST changes: +LEVO500T91 PO; +METR-344 PO; +TRAZ-228 PO
[2025-04-06 09:33] LABS: Hematocrit 37.6 % (36.0-46.0); Hemoglobin 13.0 g/dL (12.2-16.2); Mean Corpuscular Hemoglobin 31.4 pg (28.0-32.0); Mean Corpuscular Volume 91.0 fL (80.0-100.0); Nucleated Red Blood Cells % 0.2 %
[2025-04-06 09:51] LABS: Alanine Aminotransferase 18 U/L (7-40); Albumin 4.1 g/dL (3.2-4.8); Alkaline Phosphatase 59 U/L (46-116); Anion Gap 10 (5-15); BUN/Creatinine Ratio 14.1 (10.0-20.0); Calcium 9.1 mg/dL (8.7-10.4); Carbon Dioxide 29 mmol/L (20-31); Chloride 104 mmol/L (98-107); Glucose 100 mg/dL (74-106); Potassium 4.0 mmol/L (3.5-5.1); Sodium 143 mmol/L (136-145); Total Protein 7.0 g/dL (5.7-8.2); Triglycerides 137 mg/dL (< 150)
[2025-04-06 09:52] LABS: Bilirubin, Total 0.5 mg/dL (0.2-1.0); Cholesterol 127 mg/dL (< 200); HDL Cholesterol 42 mg/dL (40-59)
[2025-04-06 09:56] LABS: Blood Urea Nitrogen 9 mg/dL (9-23)
== END 2025-04-06 17:00 | disposition home or self-care (01) ==
LOC: LAB 08:26
PROVIDERS: ATTEND Student in an Organized Health Care Education/Training Program
DX: I10 Essential (primary) hypertension (principal); E11.9 Type 2 diabetes mellitus without complications; E78.5 Hyperlipidemia, unspecified; E55.9 Vitamin D deficiency, unspecified
CPT/HCPCS: 36415; 80053; 80061; 82306; 83036; 84443; 85025